=== PATIENT | male | born 1960 | race Caucasian/White ===

== ENCOUNTER 2016-08-07 10:44 | Outpatient (CLI) ==
--- NOTE | 2016-08-07 13:32 | DI ---
EXAM: PA and lateral views of the chest HISTORY: Chest pain COMPARISON: Same day thoracic spine x-rays FINDINGS: The cardiomediastinal silhouette is unremarkable with atherosclerotic disease. There is no pneumothorax or pleural effusion. There is flattening of the diaphragm. There is no consolidati on, nodule or mass. The osseous structures demonstrate minimal degenerative disease of the spine. IMPRESSION: Mild hyperinflation with no acute consolidation.
--- NOTE | 2016-08-07 13:36 | DI ---
EXAM: Three views of the thoracic spine HISTORY: Back pain. COMPARISON: Two view of the chest same day FINDINGS: There is no acute compression fracture of the thoracic spine. There is minimal disc space narrowing in the lower thoracic spine. There is no lytic or blastic lesion. No compression deform ity is present. The soft tissues are unremarkable. There is degenerative disease noted in the lowe r cervical spine with disc space narrowing and osteophyte formation. IMPRESSION: 1. Minimal degenerative change in the lower thoracic spine. 2. Incidentally noted is degenerative change in the lower cervical spine.
== END 2016-08-07 10:45 | disposition home or self-care (01) ==
LOC: RAD 10:44
PROVIDERS: ATTEND Family Medicine
DX: M54.6 Pain in thoracic spine (principal); J45.20 Mild intermittent asthma, uncomplicated